=== PATIENT | female | born 1965 | race Two or more races ===

== ENCOUNTER 2017-12-18 11:54 | Day surgery (SDC) | payer BC ==
[2017-12-18] MEDS ORDERED: LIDOCAINE 2% (SDV) 5 ML INJ (16:19)
[2017-12-18] MEDS ORDERED: PROPOFOL 20 ML (16:19)
== END 2017-12-18 17:36 | disposition home or self-care (01) ==
LOC: GIL 11:54
DX: K29.50 Unspecified chronic gastritis without bleeding (principal); I85.00 Esophageal varices without bleeding; E78.5 Hyperlipidemia, unspecified
CPT/HCPCS: 43239; 88305; 88312

== ENCOUNTER 2018-05-15 12:47 | Emergency (ER) | payer BC ==
[2018-05-15] MEDS: ONDANSETRON (ODT) 4 MG TAB ODT (14:23)
[2018-05-15] MEDS: HYDROmorphONE 1 MG/ML SYG IM (14:24)
[2018-05-15] MEDS: DEXAMETHASONE 4 MG TAB PO (14:53)
[2018-05-15] MEDS: METOCLOPRAMIDE 10 MG TAB PO (15:52)
== END 2018-05-15 16:46 | disposition home or self-care (01) ==
LOC: FTE 12:47
DX: M54.5 Low back pain (principal)
CPT/HCPCS: 72131; 96372; 99285-25

== ENCOUNTER 2018-07-03 11:39 | Day surgery (SDC) | payer BC ==
[2018-07-03] MEDS ORDERED: PROPOFOL 20 ML (13:56)
[2018-07-03] MEDS ORDERED: FENTAnyl 50 MCG/ML VIAL (13:57)
[2018-07-03] MEDS ORDERED: ETOMIDATE 20 MG INJ (13:57)
== END 2018-07-03 16:06 | disposition home or self-care (01) ==
LOC: GIL 11:39
DX: I85.00 Esophageal varices without bleeding (principal); K29.50 Unspecified chronic gastritis without bleeding; K74.60 Unspecified cirrhosis of liver
CPT/HCPCS: 43235; 88305; 88312

== ENCOUNTER 2019-01-22 11:48 | Day surgery (SDC) | payer BC ==
[2019-01-22] MEDS ORDERED: PROPOFOL 20 ML (15:23)
[2019-01-22] MEDS ORDERED: GLYCOPYRROLATE 0.4 MG INJ (15:23)
[2019-01-22] MEDS ORDERED: LIDOCAINE 2% (SDV) 5 ML INJ (15:23)
== END 2019-01-22 18:49 | disposition home or self-care (01) ==
LOC: GIL 11:48
DX: I85.00 Esophageal varices without bleeding (principal); K29.30 Chronic superficial gastritis without bleeding
CPT/HCPCS: 43239; 88305; 88312